=== PATIENT | male | born 2000 | race Caucasian/White ===

== ENCOUNTER 2024-02-20 17:24 | Emergency (ER) | payer MEDICAID ==
[~2024-02-20] VITALS: Ht 165.1 cm; Wt 77.3 kg
[2024-02-20 17:31] VITALS: O2SAT 99
[2024-02-20] MEDS ORDERED: IBUP-2028 MT (19:31)
[2024-02-20 19:50] VITALS: BP 132/79; PULSE 89; RESP 16; TEMP 98.8
== END 2024-02-20 19:52 | disposition home or self-care (01) ==
LOC: ER 17:24
DX: B34.9 Viral infection, unspecified (principal)
CPT/HCPCS: 71045; 99283